=== PATIENT | female | born 1935 | race Caucasian/White ===

== ENCOUNTER 2020-12-03 20:20 | Inpatient (IN) | payer MEDICARE ==
[~2020-12-03] VITALS: Ht 157.5 cm; Wt 63.6 kg
[2020-12-03] MEDS ORDERED: AMLO10 PO (21:12)
[2020-12-03] MEDS ORDERED: ACET500 PO (21:12)
[2020-12-03] MEDS ORDERED: ATEN25 PO (21:12)
[2020-12-03] MEDS ORDERED: DONE5 PO (21:13)
[2020-12-03] MEDS ORDERED: LANOXIN125 MCG PO (21:13)
[2020-12-03] MEDS ORDERED: FENO160 PO (21:13)
[2020-12-03] MEDS ORDERED: ZESTRIL40 M1 PO (21:14)
[2020-12-03] MEDS ORDERED: IBUP400 PO (21:14)
[2020-12-03] MEDS ORDERED: Lysine500 MG PO (21:15)
[2020-12-03] MEDS ORDERED: METF500 PO (21:15)
[2020-12-03] MEDS ORDERED: CODACE30 PO (21:16)
[2020-12-03] MEDS ORDERED: THERA-D2000 UNIT PO (21:17)
[2020-12-03 22:31] LABS: BASOPHILS ABSOLUTE AUTO 0.02 K/mm3 (0.00-0.23); BASOPHILS PERCENT AUTO 0 % (0-2); EOSINOPHILS PERCENT AUTO 0 % (0-6); Hematocrit 43.2 % (33.0-51.0); Hemoglobin 13.5 g/dL (11.5-16.0); IMMATURE GRAN ABSOLUTE AUTO 0.03 K/mm3 (0.00-0.10); IMMATURE GRAN PERCENT AUTO 0 % (0-1); LYMPHOCYTES ABSOLUTE AUTO 0.35 K/mm3 (0.84-5.20); LYMPHOCYTES PERCENT AUTO 4 % (21-46); MONOCYTES PERCENT AUTO 3 % (4-13); Mean Corpuscular HGB 27.7 pg (26.0-34.0); Mean Corpuscular HGB Conc 31.3 g/dL (31.5-36.5); Mean Corpuscular Volume 89 fL (80-100); Mean Platelet Volume 8.5 fL (9.1-12.4); NEUTROPHILS ABSOLUTE AUTO 8.56 K/mm3 (1.96-9.15); NEUTROPHILS PERCENT AUTO 93 % (41-73); Platelet Count 612 K/mm3 (150-400); RDW Coefficient Variation 12.9 % (11.7-14.2); RDW Standard Deviation 42.2 fL (35.1-46.3); Red Blood Cell Count 4.87 M/mm3 (3.80-5.20); White Blood Cell Count 9.26 K/mm3 (4.00-11.30)
[2020-12-03 22:50] LABS: Alanine Aminotransfer (ALT/SGP 9 U/L (12-78); Albumin, Blood 3.2 g/dL (3.4-5.0); Albumin/Globulin Ratio 0.8 (0.8-1.8); Alk Phos 68 U/L (50-136); Anion Gap 14 mmol/L (6-16); Aspartate Aminotrans (AST/SGOT 15 U/L (12-37); Bilirubin, Total 0.5 mg/dL (0.1-1.0); Blood Urea Nitrogen 19 mg/dL (8-24); Bun/Creatinine Ratio 29.1 (12.0-20.0); CO2, Blood 22 mmol/L (21-32); Calcium, Blood 8.9 mg/dL (8.5-10.1); Chloride, Blood 103 mmol/L (98-108); Creatinine, Blood 0.65 mg/dL (0.40-1.00); Globulin, Blood 3.9 g/dL (2.2-4.0); Glomerular Filtration Rate >60 (60-); Glucose, Blood 75 mg/dL (70-99); Potassium, Blood 4.4 mmol/L (3.5-5.5); Sodium, Blood 139 mmol/L (136-145); Total Protein, Blood 7.1 g/dL (6.4-8.2)
--- NOTE | 2020-12-04 00:29 | NUR ---
12/04/20 0029 Ashley Khan PT ON SCHEDULED UNASYN AND RECIEVED PRIOR TO ARRIVAL TO OR.
--- NOTE | 2020-12-04 01:27 | NUR ---
RECOVERY PT ARRIVED FROM OR AT [address] STODDARD AND SENIOR ASSET MANAGERHUMBERTO WAGNER. PT OPENS EYES TO VERBAL RESPONSE. FOLLOWING INSTRUCTIONS. BP HYPOTENSIVE. LR BOLUS INFUSING PER DR STODDARD. LUNGS WITH WHEEZING BEFORE C&DB THAN DECREASED. PT ON 9 LITER O2 VIA NRB. CHANGED TO 2 LITERS VIA NC FOR SPO2 FOR 100%. HEART RATE REGULAR IN THE 70'S, PT WITH HISTORY OF AFIB. NG TO RIGHT NARE CLAMPED. BT HYPOACTIVE. MIDLINE ABD DRSG, LISET DRSG INTACT, NO DRAINAGE. MANASA TO RIGHT UPPER QUAD ABD WITH 50 ML SEROUSANGIOUS DRAINAGE OUT. IV 18G TO RIGHT AC WITH LR INFUSING, SITE CLEAR. IV 20G TO LEFT FOREARM SALINE LOCKED, SITE FLUSHED WITHOUT DIFFICULTY. PARISH CATH PATENT DRAINING YELLOW URINE. DAUGHTER TO BEDSIDE.
--- NOTE | 2020-12-04 02:20 | NUR ---
PT RECEIVED FROM ICU/POST RECOVERY. ALERT.SLIGHTLY FORGETFUL WITH HX DEMENTIA. NG PATENT OF BILE. DENIES CP OR SOB.RESP APPEAR EVEN AMD UNLABORED RECQUESTS TO NOT GET OOB WANTS TO SLEEP .REASSURED SHE CAN REST.LUNGS CLEAR BUT DECREASED. IV FLUID BOLUS COMPLETED. MIDLINE LISET D/I.MANASA COMPRESSED WTIH SEROUS FLUID.PT NGO.PT WITH COCCYX HEALING BEDSORE REPORTED PER DAUGHTER AT BEDSIDE.WOUND WITH CHAFFING DRY SKIN. MEPILEX APPLIED. SEE POSTOP VS.PULSES INTACT X4 EXT.PARISH PATENT OF CLEAR YELLOW.WILL PLACE PAS.
[2020-12-04 05:21] LABS: BASOPHILS ABSOLUTE AUTO 0.02 K/mm3 (0.00-0.23); BASOPHILS PERCENT AUTO 0 % (0-2); EOSINOPHILS PERCENT AUTO 0 % (0-6); Hematocrit 37.5 % (33.0-51.0); Hemoglobin 11.6 g/dL (11.5-16.0); IMMATURE GRAN ABSOLUTE AUTO 0.03 K/mm3 (0.00-0.10); IMMATURE GRAN PERCENT AUTO 0 % (0-1); LYMPHOCYTES ABSOLUTE AUTO 0.41 K/mm3 (0.84-5.20); LYMPHOCYTES PERCENT AUTO 4 % (21-46); MONOCYTES ABSOLUTE AUTO 0.35 K/mm3 (0.16-1.47); MONOCYTES PERCENT AUTO 3 % (4-13); Mean Corpuscular HGB 27.4 pg (26.0-34.0); Mean Corpuscular HGB Conc 30.9 g/dL (31.5-36.5); Mean Corpuscular Volume 88 fL (80-100); Mean Platelet Volume 8.2 fL (9.1-12.4); NEUTROPHILS ABSOLUTE AUTO 10.64 K/mm3 (1.96-9.15); NEUTROPHILS PERCENT AUTO 93 % (41-73); Platelet Count 487 K/mm3 (150-400); RDW Standard Deviation 42.5 fL (35.1-46.3); Red Blood Cell Count 4.24 M/mm3 (3.80-5.20); White Blood Cell Count 11.45 K/mm3 (4.00-11.30)
[2020-12-04 05:34] LABS: Anion Gap 10 mmol/L (6-16); Blood Urea Nitrogen 17 mg/dL (8-24); Bun/Creatinine Ratio 25.6 (12.0-20.0); CO2, Blood 24 mmol/L (21-32); Chloride, Blood 106 mmol/L (98-108); Creatinine, Blood 0.66 mg/dL (0.40-1.00); Glomerular Filtration Rate >60 (60-); Glucose, Blood 92 mg/dL (70-99); Potassium, Blood 4.4 mmol/L (3.5-5.5); Sodium, Blood 140 mmol/L (136-145)
--- NOTE | 2020-12-04 11:11 | NUR ---
PT DAUGHTER ALIX GAVE PERMISSION FOR PHOTOGRAPHY OF HEALING COCCYX WOUND THAT WAS PRESENT ON ADMISSION. PT UNABLE TO ANSWER QUESTION WHEN ASKED R/T CONFUSION AT THIS TIME.
--- NOTE | 2020-12-04 15:58 | NUR ---
SHIFT SUMMARY POD 0 EX LAP WITH GRAM PATCH REPAIR PT AA0X1/2 ORIENTATION LEVEL INCREASES WHEN DAUGHTER CAME TO VISIT. PT REPORTS DISCOMFORT BUT NOT PAIN. MEDICATED X1 PER EMAR. PT REPOSITIONING WELL ATTEMPTING TO REPOSITION Q2. PT COOPERATIVE AND PLEASANT. DENIES PASSING GAS TODAY. SOME DIFFICULTY UNDERSTANDING QUESTION TO ANSWER. MANASA DRAIN SANGUINOUS PICCO COMPRESSED CDI. PARISH PATENT AND DRAINING.
--- NOTE | 2020-12-05 02:40 | NUR ---
PT CONTINUE TO HAVE HARD TIME SWALLOWING AFTER TAKING ICE CHIPS. ENC COUGHING, DEEP BREATHING EXERCISE AND REINFORCE USE OF I/S. WILL CONTINUE TO REPOSITION PATIENT Q2.
[2020-12-05 04:11] LABS: BASOPHILS ABSOLUTE AUTO 0.02 K/mm3 (0.00-0.23); BASOPHILS PERCENT AUTO 0 % (0-2); EOSINOPHILS PERCENT AUTO 0 % (0-6); Hematocrit 31.1 % (33.0-51.0); Hemoglobin 9.8 g/dL (11.5-16.0); IMMATURE GRAN ABSOLUTE AUTO 0.07 K/mm3 (0.00-0.10); IMMATURE GRAN PERCENT AUTO 1 % (0-1); LYMPHOCYTES ABSOLUTE AUTO 0.95 K/mm3 (0.84-5.20); LYMPHOCYTES PERCENT AUTO 6 % (21-46); MONOCYTES ABSOLUTE AUTO 0.99 K/mm3 (0.16-1.47); MONOCYTES PERCENT AUTO 6 % (4-13); Mean Corpuscular HGB 27.9 pg (26.0-34.0); Mean Corpuscular HGB Conc 31.5 g/dL (31.5-36.5); Mean Corpuscular Volume 89 fL (80-100); NEUTROPHILS ABSOLUTE AUTO 13.32 K/mm3 (1.96-9.15); NEUTROPHILS PERCENT AUTO 87 % (41-73); Platelet Count 482 K/mm3 (150-400); RDW Coefficient Variation 13.3 % (11.7-14.2); Red Blood Cell Count 3.51 M/mm3 (3.80-5.20); White Blood Cell Count 15.35 K/mm3 (4.00-11.30)
--- NOTE | 2020-12-05 04:25 | NUR ---
SHIFT SUMMARY POD1 EXP LAP WITH GRAM PATCH PT ALERT AND ORIENTED X1. PT DID NOT EXPRESS ANY DISCOMFORT. UNABLE TO VERBALIZE HOW SHE FEELS. HX DEMENTIA. UNABLE TO ASSESS IF SHE HAS PASS ANY GAS. REPOSITIONED Q2 AT NIGHT. C/O OF DRY MOUTH, ICE CHIPS AND MOUTH SWAB GIVEN. PT STILL HAS A HARD TIME SWALLOWING, REORIENT PT AND VERBAL CUES GIVEN TO INSTRUCT AND GUIDE PT. MANASA DRAINING W/ SANGUINOUS. PAIRSH INTACT W/ AN OUTPUT OF 200ML. ABD LISET MIDLINE COMPRESSED CDI. TELE AT SR AT 60'S. PT COMFORTABLE IN BED, SLEEPING AT THIS TIME. CALL LIGHT W/IN REACH.
[2020-12-05 04:30] LABS: Albumin, Blood 2.1 g/dL (3.4-5.0); Anion Gap 10 mmol/L (6-16); Blood Urea Nitrogen 26 mg/dL (8-24); Bun/Creatinine Ratio 37.5 (12.0-20.0); CO2, Blood 21 mmol/L (21-32); Calcium, Blood 8.1 mg/dL (8.5-10.1); Chloride, Blood 110 mmol/L (98-108); Creatinine, Blood 0.69 mg/dL (0.40-1.00); Glomerular Filtration Rate >60 (60-); Glucose, Blood 100 mg/dL (70-99); Phosphorus, Blood 2.7 mg/dL (2.5-4.9); Potassium, Blood 4.3 mmol/L (3.5-5.5); Sodium, Blood 141 mmol/L (136-145)
--- NOTE | 2020-12-05 04:46 | NUR ---
SHIFT SUMMARY PT AOX4, INDEPENDENT IN ROOM. NO ACUTE CHANGES TONIGHT. DR. KOWALSKI CAME IN LAST NIGHT TO SPEAK PT AND L HAND DRESSING CHANGED. PLAN FOR SURGERY TODAY. PT HAS BEEN NPO AFTER MIDNIGHT. PAIN IS WELL CONTROLLED, MANAGED WITH 10MG ELMER Q4. HEPARIN STILL INFUSING. SENSATION INTACT AND INTERMITENT NUMBNESS ON R KNUCKLE HAS NOT CHANGED. PT SLEPT GOOD AFTER MIDNIGHT. CALL LIGHT W/IN REACH.
--- NOTE | 2020-12-05 13:19 | NUR ---
DISCUSSED SPEECH THERAPY SWALLOW EVAL WITH DR ESCOBAR. DR ESCOBAR DOES NOT WANT A SWALLOW EVAL DONE AT THIS TIME. PT HAS AN NG TUBE AT THIS TIME AND WILL RE-EVALUATE NEED FOR SWALLOW EVAL WHEN REMOVED.
[2020-12-05] MEDS ORDERED: Ocuvite Preser1 EACH PO (17:11)
[2020-12-05] MEDS ORDERED: ABAT250V (17:12)
--- NOTE | 2020-12-05 19:24 | NUR ---
SHIFT SUMMARY PT A&OX4, VSS/2LNC, BEDREST, POD1 EXP LAP GRAM PATCH WITH LISET D/I AND MANASA WITH SS OUT. TELE NSR @ 60S BPM, PARISH PATENT & DRAINING YELLOW URINE, STAT LOCK ON, OFF FLOOR. HOB ELEV FOR INTAKE OF ICE CHIPS. PAIN MANAGED WITH 2.5 MG MORPHINE X1;DENIED PAIN T/O SHIFT. REPOSITIONED Q2. REPORT PROVIDED TO DAWOOD PAUL.
[2020-12-06 04:21] LABS: BASOPHILS ABSOLUTE AUTO 0.02 K/mm3 (0.00-0.23); BASOPHILS PERCENT AUTO 0 % (0-2); EOSINOPHILS ABSOLUTE AUTO 0.06 K/mm3 (0.00-0.68); EOSINOPHILS PERCENT AUTO 1 % (0-6); Hematocrit 30.2 % (33.0-51.0); Hemoglobin 9.4 g/dL (11.5-16.0); IMMATURE GRAN ABSOLUTE AUTO 0.06 K/mm3 (0.00-0.10); IMMATURE GRAN PERCENT AUTO 1 % (0-1); LYMPHOCYTES ABSOLUTE AUTO 1.05 K/mm3 (0.84-5.20); LYMPHOCYTES PERCENT AUTO 9 % (21-46); MONOCYTES ABSOLUTE AUTO 0.76 K/mm3 (0.16-1.47); MONOCYTES PERCENT AUTO 6 % (4-13); Mean Corpuscular HGB 27.9 pg (26.0-34.0); Mean Corpuscular HGB Conc 31.1 g/dL (31.5-36.5); Mean Corpuscular Volume 90 fL (80-100); Mean Platelet Volume 8.1 fL (9.1-12.4); NEUTROPHILS ABSOLUTE AUTO 10.14 K/mm3 (1.96-9.15); NEUTROPHILS PERCENT AUTO 84 % (41-73); Platelet Count 445 K/mm3 (150-400); RDW Coefficient Variation 13.2 % (11.7-14.2); RDW Standard Deviation 43.8 fL (35.1-46.3); Red Blood Cell Count 3.37 M/mm3 (3.80-5.20); White Blood Cell Count 12.09 K/mm3 (4.00-11.30)
--- NOTE | 2020-12-06 04:25 | NUR ---
SHIFT SUMMARY ADMITTED FOR PERFORATED ULCER. GRAM PATCH PROCEDURE PERFORMED. FULL CODE. MANASA DRAIN IN PLACE. NG TUBE IN PLACE, PT IS NPO EXCEPT ICE CUBES. LISET DRESSING IN PLACE MIDLINE ABDOMEN. PT IS [place]. TELEMETRY: NSR @ 67 BPM. МАРИНА IS PATENT. PLAN IS FOR PT TO WORK WITH PT/OT TODAY. THE PATCH WILL BE TESTED ON POD3
[2020-12-06 04:40] LABS: Anion Gap 8 mmol/L (6-16); Blood Urea Nitrogen 18 mg/dL (8-24); Bun/Creatinine Ratio 38.1 (12.0-20.0); CO2, Blood 25 mmol/L (21-32); Calcium, Blood 8.4 mg/dL (8.5-10.1); Chloride, Blood 112 mmol/L (98-108); Creatinine, Blood 0.47 mg/dL (0.40-1.00); Glomerular Filtration Rate >60 (60-); Glucose, Blood 85 mg/dL (70-99); Phosphorus, Blood 1.4 mg/dL (2.5-4.9); Potassium, Blood 3.8 mmol/L (3.5-5.5); Sodium, Blood 145 mmol/L (136-145)
--- NOTE | 2020-12-06 10:04 | NUR ---
PERMISSION TO CARE THIS OPERATIONAL RISK ANALYST GOT PERMISSION FROM DONNA STEELE ON 12/06/20, TO PROVIDE CARE.
--- NOTE | 2020-12-06 13:08 | NUR ---
Patient is lying in bed and alert. Patient immediately tells me that she has no idea why she is in the hospital and that is frustrated by all the tests they are putting her through. Once patient calms down a bit she is quite pleasant and cognitively sharp. 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 She talks about her 's to Parkinson's and her 4 daughters. She states that they take great care of her. She also speaks at length about her spiritual journey and her service in the [employer]af[employer] for most of her life. I reinforce helpful attitudes and practices and provide therapeutic listening, a calming presence and prayer. Patient responds well and shows signs of increase peace and an elevated mood. I will continue to remain available to patient and family.
--- NOTE | 2020-12-06 18:27 | NUR ---
SHIFT SUMMARY PT IS ALERT AND ORIENTED 2-3. AFTER PRN PAIN MEDS PT'S CONFUSION INCREASES FOR A FEW HOURS AND BEGINS TO CLEAR. NG REMAINS IN PLACE TO LIS WITH 450ML OF BILE COLORED OUTPUT THIS SHIFT. PT REPORTS MOST OF HER PAIN IS BACK OF HER THROAT, DENIES ABDOMINAL PAIN AT REST AND HAS A FAIR AMOUNT OF PAIN WITH MOVEMENT AND ACTIVITY. PARISH IN PLACE DRAINING TO GRAVITY WITH ADEQUATE OUTPUT. MANASA DRAINING SEROUS FLUID. VITALS HAVE BEEN STABLE. TELEMETERY SHOWS PT TO BE IN NSR W/ PAC'S.
--- NOTE | 2020-12-07 02:46 | NUR ---
SHIFT SUMMARY POD3 EX LAP W/ ERICK PATCH, ALERT AND ORIENTED TO PERSON/FAMILY/PLACE, INTERMITTENT CONFUSION BUT EASY TO REORIENT, VSS, TOLERATING ICE CHIPS, NPO OTHERWISE, NG TUBE IN PLACE, PARISH IN PLACE AND DRAINING, UNABLE TO ANSWER ABOUT MOST RECENT BM OR PAIN. CALL LIGHT IN REACH, WILL CONTINUE TO MONIOTR AND REPORT GENEVA WONG RN.
[2020-12-07 04:27] LABS: BASOPHILS ABSOLUTE AUTO 0.04 K/mm3 (0.00-0.23); BASOPHILS PERCENT AUTO 0 % (0-2); EOSINOPHILS ABSOLUTE AUTO 0.12 K/mm3 (0.00-0.68); EOSINOPHILS PERCENT AUTO 1 % (0-6); Hematocrit 28.9 % (33.0-51.0); IMMATURE GRAN ABSOLUTE AUTO 0.05 K/mm3 (0.00-0.10); IMMATURE GRAN PERCENT AUTO 1 % (0-1); LYMPHOCYTES PERCENT AUTO 12 % (21-46); MONOCYTES ABSOLUTE AUTO 0.76 K/mm3 (0.16-1.47); MONOCYTES PERCENT AUTO 8 % (4-13); Mean Corpuscular HGB 27.4 pg (26.0-34.0); Mean Corpuscular HGB Conc 31.1 g/dL (31.5-36.5); Mean Corpuscular Volume 88 fL (80-100); Mean Platelet Volume 8.2 fL (9.1-12.4); NEUTROPHILS ABSOLUTE AUTO 7.69 K/mm3 (1.96-9.15); NEUTROPHILS PERCENT AUTO 78 % (41-73); Platelet Count 405 K/mm3 (150-400); RDW Coefficient Variation 13.1 % (11.7-14.2); RDW Standard Deviation 42.5 fL (35.1-46.3); Red Blood Cell Count 3.29 M/mm3 (3.80-5.20); White Blood Cell Count 9.86 K/mm3 (4.00-11.30)
[2020-12-07 04:49] LABS: Albumin, Blood 1.9 g/dL (3.4-5.0); Anion Gap 3 mmol/L (6-16); Blood Urea Nitrogen 15 mg/dL (8-24); Bun/Creatinine Ratio 40.5 (12.0-20.0); CO2, Blood 31 mmol/L (21-32); Calcium, Blood 8.1 mg/dL (8.5-10.1); Chloride, Blood 108 mmol/L (98-108); Creatinine, Blood 0.37 mg/dL (0.40-1.00); Glomerular Filtration Rate >60 (60-); Glucose, Blood 117 mg/dL (70-99); Phosphorus, Blood 1.6 mg/dL (2.5-4.9); Potassium, Blood 3.2 mmol/L (3.5-5.5); Sodium, Blood 142 mmol/L (136-145)
--- NOTE | 2020-12-07 14:37 | NUR ---
PT'S FAMILY IS VISITING AT THIS TIME. DR. ESCOBAR NOTIFIED THAT THEY HAVE QUESTIONS AND ARE PRESENT IN THE ROOM. WILL CONTINUE TO MONITOR.
--- NOTE | 2020-12-07 15:29 | NUR ---
Jerrica Tillman calls on [employer] upon patient request asking for a spiritual care visit. Patient is finishing with PT and is tired but is glad for this residential mortgage underwriter to meet her daughters, Mariella and Ludivina. Patient wants me to see and listen to clip from her latter day oriental orthodox service and then to talk with her family about my connections to all the places they live, attend school and latter day because of all the common ground. Patient is encouraged by discussions of places and people that hold special memories. I provide companionship and prayer. Patient and family respond well and show signs of elevated moods. I will continue to remain available to patient and family.
--- NOTE | 2020-12-07 16:51 | NUR ---
DR. ESCOBAR ROUNDED AT APPROXIMATELY 1630. NG TUBE WAS REMOVED BY DR. ESCOBAR, PT TOLERATED WELL. PT TOLERATING SIPS AND CHIPS AT THIS TIME.
--- NOTE | 2020-12-07 17:59 | NUR ---
SHIFT SUMMARY PT IS POD# 3 FROM A GRAM PATCH TO REPAIR PERF'D ULCER. PT HAS HAD DIFFICULTY EXPRESSING PAIN, MORPHINE GIVEN TO MAKE MOVEMENT EASIER PT APPEARED PAINFUL WITH MOVEMENT. NG TUBE WAS REMOVED BY DR. ESCOBAR TODAY. PT IS TOLERATING SIPS AND CHIPS. PT SAT AT THE EDGE OF THE BED WITH THERAPY, ALTHOUGH SHE WAS NOT EXCITED TO PARTICIPATE. PT HAS ANXIETY AND NEEDS ENCOURAGEMENT. VSS. WILL MONITOR UNTIL REPORT TO ONCOMING RN.
[2020-12-08 04:50] LABS: Hematocrit 30.8 % (33.0-51.0); Hemoglobin 9.8 g/dL (11.5-16.0)
--- NOTE | 2020-12-08 04:59 | NUR ---
SHIFT SUMMARY: PT POD#4 FOR ERICK PATCH. LISET WOUND VAC C/D/I AND COMPRESSED. MANASA DRAINING MODERATE AMOUNT OF SEROUS FLUID. 90CC EMPTIED. ACTIVE BT X4. PT IS UNAWARE WHETHER SHE IS PASSING FLATUS OR NOT. CONFUSED THIS SHIFT. REPEATING SELF FREQUENTLY. NONSENSICAL AT TIMES AND HAVING A DIFFICULT TIME FINISHING SENTENCES. PT HAS REMAINED CALM AND COOPERATIVE WITH CARE. CLINIMIX INFUSING PER EMAR. PT MEDICATED WITH 2MG MORPHINE ONCE. PT DENIES ABD PAIN BUT IS COMPLAINING ABOUT LEFT SHOULDER AND RIGHT KNEE PAIN. R KNEE APPEARS SWOLLEN. FAMILY REPORTS CHRONIC ISSUES WITH BILATERAL KNEES. PT UNMOTIVATED TO REPOSITION OR PERFORM ROM EXERCISES. PT CRIES OUT IN PAIN DURING ANY SORT OF MOVEMENT. PT NOT EAGER FOR ANOTHER SESSION FOR PHYSICAL THERAPY. PT REQUIRING FREQ EDUCATION AND ENCOURAGEMENT.
[2020-12-08 05:19] LABS: Anion Gap 7 mmol/L (6-16); Blood Urea Nitrogen 15 mg/dL (8-24); Bun/Creatinine Ratio 42.7 (12.0-20.0); CO2, Blood 27 mmol/L (21-32); Calcium, Blood 8.1 mg/dL (8.5-10.1); Chloride, Blood 101 mmol/L (98-108); Creatinine, Blood 0.35 mg/dL (0.40-1.00); Glomerular Filtration Rate >60 (60-); Glucose, Blood 133 mg/dL (70-99); Phosphorus, Blood 2.5 mg/dL (2.5-4.9); Potassium, Blood 3.4 mmol/L (3.5-5.5); Sodium, Blood 135 mmol/L (136-145)
--- NOTE | 2020-12-08 11:04 | NUR ---
PT HAD A BM THIS MORNING, UNABLE TO COLLECT SAMPLE IT WAS ABSORBED BY ATTENDS AND AT LEAST 5ML OF STOOL NEEDED.
--- NOTE | 2020-12-08 18:00 | NUR ---
Initial palliative care consult: Met with Alisa and her dtr Mariella this evening. Alisa has a history of a-fib (not on anti coagulation), HTN, DM, L knee and L hip replacements and a LLE DVT in the 1940s. 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 She is awake and alert but tired during our conversation. She reports discomfort to her right knee with movement. Her right knee is swollen and warm to the touch. No c/o of any abd pain at this time. Alisa tells this ticket writer that she just moved from [place], [place] to come live with her dtr, Mariella, in [place], [place]. She tells me that her 4 children decided it was time for her to move and she reports that she is ok with this recent change in her life. She denies being depressed about her move. She flew into the [facility] from [place] and was taken directly to the hospital because of abdominal pain. She was transferred to [facility] for surgery for a perforated ulcer which was repaired by Dr. Brunner on 12/04/20. She has had a slow recovery thus far due to pain and poor motivation to get OOB and work with therapy. Several staff members have reported that Alisa has referenced being ready to go to [facility]. Mariella reports her mother has an AD from the state of [place] (she has a copy of it with her.) We reviewed the AD and discussed a POLST form. Mariella reports her mom doesn't have a POLST form but is interested in filling one out while she is here. Mariella and her sister Adalgisa are the health care representatives for Alisa. This is listed in her AD from [place]. Discussed the options on the POLST form and Alisa is very clear that she would want to be a DNR. Alisa requested that Mariella sign her POLST form for her. Current plan per Mariella is that they are working [place]. The hope is that with some pain management,therapy and time that Alisa will get stronger to be able to go and live with Mariella. Mariella states that if Alisa isn't able to participate in therapy and it is creating more pain and anxiety, discomfort that they will revisit the goals of care and look at options for keeping Alisa comfortable with the right equipment in Mariella's home. POLST form completed. Spoke with Dr. Roblero and placed new order for DNR in the EMR per her request. Nursing updated. Plan is to keep Alisa through the weekend, continue with pain management strategies and therapy and potentially be able [place]. PC will continue to follow for symptom management and assistance with advanced care planning as needed. POLST form to be signed by Dr. Roblero and then it will be processed for medical records and the [place] POL[place] Registry.
--- NOTE | 2020-12-08 18:54 | NUR ---
R KNEE WRAPPED WITH TERRENCE WRAP FOR COMFORT PER DR. KELLY.
--- NOTE | 2020-12-08 18:55 | NUR ---
DNR BAND PLACED AND ORDER VERIFIED WITH ADILIA DORSEY RN.
--- NOTE | 2020-12-08 18:58 | NUR ---
SHIFT SUMMARY PT IS POD#4 FROM ERICK PATCH ULCER REPAIR. PT HAS HAD MINIMAL ABD PAIN BUT COMPLAINS OF PAIN TO HER R KNEE. PT'S RIGHT KNEE HAS BEEN SWOLLEN, XRAY SHOWED ARTHRITIS PER DR. KELLY. TERRENCE WRAP WAS APPLIED FOR COMFORT. ICE DID NOT APPEAR TO RELIEVE PAIN. PT WORKED WITH THERAPY AND WAS A 2 PERSON MAX ASSIST TO THE BEDSIDE COMMODE. PARISH CATHETER REMOVED THIS SHIFT, PT HAS VOIDED X2 BUT AND RETAINS SOME URINE. BLADDER SCANS HAVE SHOWN >200ML. PT HAS BEEN UNINTERESTED IN FOOD OR FLUIDS TODAY, CONTINUING CLINIMIX AT THIS TIME. PT HAS HAD MULTIPLE BOWEL MOVEMENTS AND HAS ACTIVE BOWEL SOUNDS X4 QUADRANTS. FAMILY WAS PRESENT FOR SUPPORT TODAY. PT'S LEONER AND CLAUDIA THOMSON TALKED WITH THERAPY, DISCHARGE PLANNING AND DR. KELLY REGARDING PT'S STATUS AND PLAN OF CARE. VSS. REPORT GIVEN TO DAWOOD PAUL.
--- NOTE | 2020-12-09 05:19 | NUR ---
SHIFT SUMMARY PT HAS BEEN SLEEPING MOST OF THE SHIFT, AWAKENING TO VERBAL STIMULI. ORIENTED X2. PAIN MANAGED WITH PO PAIN MED PER ORDERS. PO INTAKE ENC, HOWEVER PT HAS NOT BEEN INTERESTED IN MUCH PO INTAKE THIS SHIFT. PT IS VOIDING USING BEDPAN. ATTENS ALSO IN PLACE. CLINIMIX INFUSING OVERNIGHT. PT RESTING AT THIS TIME, CALL LIGHT IN REACH AND BED ALARM ON.
[2020-12-09 05:49] LABS: BASOPHILS ABSOLUTE AUTO 0.03 K/mm3 (0.00-0.23); BASOPHILS PERCENT AUTO 0 % (0-2); EOSINOPHILS ABSOLUTE AUTO 0.23 K/mm3 (0.00-0.68); EOSINOPHILS PERCENT AUTO 2 % (0-6); Hematocrit 29.7 % (33.0-51.0); Hemoglobin 9.5 g/dL (11.5-16.0); IMMATURE GRAN ABSOLUTE AUTO 0.08 K/mm3 (0.00-0.10); IMMATURE GRAN PERCENT AUTO 1 % (0-1); LYMPHOCYTES ABSOLUTE AUTO 1.28 K/mm3 (0.84-5.20); LYMPHOCYTES PERCENT AUTO 13 % (21-46); MONOCYTES ABSOLUTE AUTO 1.07 K/mm3 (0.16-1.47); MONOCYTES PERCENT AUTO 11 % (4-13); Mean Corpuscular HGB 27.4 pg (26.0-34.0); Mean Corpuscular Volume 86 fL (80-100); Mean Platelet Volume 8.3 fL (9.1-12.4); NEUTROPHILS ABSOLUTE AUTO 6.86 K/mm3 (1.96-9.15); NEUTROPHILS PERCENT AUTO 72 % (41-73); Platelet Count 379 K/mm3 (150-400); RDW Standard Deviation 40.2 fL (35.1-46.3); Red Blood Cell Count 3.47 M/mm3 (3.80-5.20); White Blood Cell Count 9.55 K/mm3 (4.00-11.30)
[2020-12-09 06:02] LABS: Albumin, Blood 1.8 g/dL (3.4-5.0); Anion Gap 7 mmol/L (6-16); Blood Urea Nitrogen 16 mg/dL (8-24); Bun/Creatinine Ratio 42.2 (12.0-20.0); CO2, Blood 27 mmol/L (21-32); Chloride, Blood 101 mmol/L (98-108); Creatinine, Blood 0.38 mg/dL (0.40-1.00); Glomerular Filtration Rate >60 (60-); Glucose, Blood 121 mg/dL (70-99); Phosphorus, Blood 2.7 mg/dL (2.5-4.9); Potassium, Blood 3.7 mmol/L (3.5-5.5); Sodium, Blood 135 mmol/L (136-145)
--- NOTE | 2020-12-09 06:41 | NUR ---
PT NOTED TO HAVE NOT VOIDED MUCH OVER THE SHIFT; PLACED ON BEDPAN WITH ONLY 50CC VOID. BLADDER SCAN >500ML'S. STRAIGHT CATH COMPLETED WITH 600ML URINE OUT. TOLERATED WELL.
--- NOTE | 2020-12-09 19:11 | NUR ---
SHIFT SUMMARY PT HAS SHOWN LITTLE IMPROVEMENT T/O SHIFT. DIET ADVANCED TO FULL LIQUIDS, TOOK IN APROX 2% EACH MEAL-DAUGHTER AT BEDSIDE ENCOURAGING PO T/O SHIFT. PT WORKED WITH THERAPY AND WAS UP TO CHAIR. INCONTINENT OF URINE AND STOOL.
--- NOTE | 2020-12-10 04:50 | NUR ---
SHIFT SUMMARY PT RESTED WELL THIS AM. CONFUSED/COOPERATIVE WITH CARE. ABD INCISION WITH LISET C/D/I. MNAASA SECURE WITH 70cc CLEAR/YELLOW OUT. COCCYX WITH MEPILEX, CHANGED YESTARDAY EVENING. X1 BM YESTARDAY. TOLERATING SIPS FLUIDS, CONTINUE TO ENCOURAGE. CLINIMIX PER ORDERS. TURN Q2H. PT CURRENTLY RESTING WITH BED ALARM ON FOR SAFETY + CALL LIGHT IN REACH.
--- NOTE | 2020-12-10 18:32 | NUR ---
SHIFT SUMMARY PT HAS DONE WELL T/O SHIFT. SLOW PROGRESS WITH INCREASING PO INTAKE. PICCO DRESSING C/D/I-FOAM COMPRESSED. MANASA DRAIN PARENTS, DRAINING WITH CLEAR YELLOW DRAINAGE. PT VOIDING, INCONTINENT AT TIMES. PLAN TO ENCOURAGE PO INTAKE AND WORK WITH PT.
--- NOTE | 2020-12-11 06:24 | NUR ---
SHIFT SUMMARY POD#7. CONFUSED/COOPERATIVE WITH CARE. ABD INCISION WITH LISET C/D/I. MANASA SECURE WITH SMALL AMOUNT CLEAR/YELLOW OUT. DISCOMFORT CONTROLLED WITH X1 PAIN PILL. NO NAUSEA/EMESIS. NEW IV TO CARYN THIS SHIFT, CLINIMIX PER ORDERS. PT TAKING SIPS OF LIQUIDS T/O NIGHT, CONTINUE TO ENCOURAGE. TURN Q2H. INCONTINENT IN ATTENDS. HEELS FLOATED. PT CALLS OUT FOR ASSISTANCE. BED ALARM ON FOR SAFETY + CALL LIGHT WITHIN REACH. PT CURRENTLY RESTING IN BED,
--- NOTE | 2020-12-11 11:03 | NUR ---
Alisa is resting quietly in bed this morning. Her dtr, Mariella, is at the bedside. Alisa has no complaints at this time. She is looking forward to getting stronger to be able to go home to live with her dtr in [place]. Mariella reports Alisa's mood over the weekend has improved. She is no longer saying that she wants to go to [facility] at this time. Mariella reports CM RN is working to get Alisa a swimg bed nearer to her home in [place]. Alisa is working on trying to improve her PO intake, she still has clinimix running at this time. POLST form signed by Dr. Roblero. POLST copied and copy sent to Medical records department at [facility] and faxed to the [place] Registry. Original POLST and Alisa's AD are both in the front of her chart. No requests at this time. PC will continue to follow for symptom management as needed.
[2020-12-11 12:23] LABS: Hematocrit 31.3 % (33.0-51.0); Hemoglobin 10.2 g/dL (11.5-16.0); Mean Corpuscular HGB 28.1 pg (26.0-34.0); Mean Corpuscular HGB Conc 32.6 g/dL (31.5-36.5); Mean Corpuscular Volume 86 fL (80-100); Mean Platelet Volume 8.4 fL (9.1-12.4); Platelet Count 516 K/mm3 (150-400); RDW Standard Deviation 40.7 fL (35.1-46.3); Red Blood Cell Count 3.63 M/mm3 (3.80-5.20); White Blood Cell Count 11.82 K/mm3 (4.00-11.30)
[2020-12-11 12:35] LABS: Magnesium, Blood 1.8 mg/dL (1.6-2.4)
[2020-12-11 12:36] LABS: Anion Gap 7 mmol/L (6-16); Blood Urea Nitrogen 17 mg/dL (8-24); Bun/Creatinine Ratio 39.9 (12.0-20.0); CO2, Blood 26 mmol/L (21-32); Calcium, Blood 8.3 mg/dL (8.5-10.1); Chloride, Blood 98 mmol/L (98-108); Creatinine, Blood 0.43 mg/dL (0.40-1.00); Glomerular Filtration Rate >60 (60-); Glucose, Blood 110 mg/dL (70-99); Potassium, Blood 4.3 mmol/L (3.5-5.5); Sodium, Blood 131 mmol/L (136-145)
--- NOTE | 2020-12-11 18:11 | NUR ---
SHIFT SUMMARY PT HAS BEEN PLEASANT & COOPERATIVE T/O SHIFT. WAS AGREEABLE TO GET UP TO A CHAIR x 1 WITH MUCH ENCOURAGEMENT; WAS ABLE TO TOLERATE UP IN CHAIR FOR 1.5 HOURS. ABD DID BECOME NOTICEABLY MORE DISTENDED AFTER LUNCH SO ONLY SIPS OF WATER TO ALLOW DIGESTION. LISET DRSG REMOVED PER DR OG.
[2020-12-12 04:53] LABS: BASOPHILS ABSOLUTE AUTO 0.04 K/mm3 (0.00-0.23); BASOPHILS PERCENT AUTO 0 % (0-2); EOSINOPHILS ABSOLUTE AUTO 0.21 K/mm3 (0.00-0.68); EOSINOPHILS PERCENT AUTO 2 % (0-6); Hematocrit 29.8 % (33.0-51.0); Hemoglobin 9.6 g/dL (11.5-16.0); IMMATURE GRAN ABSOLUTE AUTO 0.09 K/mm3 (0.00-0.10); IMMATURE GRAN PERCENT AUTO 1 % (0-1); LYMPHOCYTES ABSOLUTE AUTO 1.35 K/mm3 (0.84-5.20); LYMPHOCYTES PERCENT AUTO 11 % (21-46); MONOCYTES ABSOLUTE AUTO 1.09 K/mm3 (0.16-1.47); MONOCYTES PERCENT AUTO 9 % (4-13); Mean Corpuscular HGB 27.8 pg (26.0-34.0); Mean Corpuscular HGB Conc 32.2 g/dL (31.5-36.5); Mean Corpuscular Volume 86 fL (80-100); Mean Platelet Volume 8.3 fL (9.1-12.4); NEUTROPHILS ABSOLUTE AUTO 9.14 K/mm3 (1.96-9.15); NEUTROPHILS PERCENT AUTO 77 % (41-73); Platelet Count 494 K/mm3 (150-400); Red Blood Cell Count 3.45 M/mm3 (3.80-5.20); White Blood Cell Count 11.92 K/mm3 (4.00-11.30)
[2020-12-12 05:09] LABS: Anion Gap 7 mmol/L (6-16); Blood Urea Nitrogen 16 mg/dL (8-24); Bun/Creatinine Ratio 41.5 (12.0-20.0); CO2, Blood 27 mmol/L (21-32); Calcium, Blood 8.4 mg/dL (8.5-10.1); Chloride, Blood 100 mmol/L (98-108); Creatinine, Blood 0.39 mg/dL (0.40-1.00); Glomerular Filtration Rate >60 (60-); Glucose, Blood 113 mg/dL (70-99); Potassium, Blood 4.1 mmol/L (3.5-5.5); Sodium, Blood 134 mmol/L (136-145)
--- NOTE | 2020-12-12 05:41 | NUR ---
SHIFT SUMMARY POD8 EX LAP W/ ERICK PATCH, ALERT, ORIENTED TO SELF AND FAMILY BUT REORIENTS TO PLACE AND SITUATION EASILY, TOLERATING PO SIPS, PASSING FLATUS BUT NO BM THIS SHIFT, PAIN CONTROLLED PER EMAR, REPORTS TENDERNESS AROUND INCISION/UPPER ABD, DOES NOT USE CALL LIGHT, CALLS OUT FOR HELP WHEN NEEDED, ANSWERS MOST QUESTIONS W/ "I DON'T KNOW", DOES WELL W/ THERAPEUTIC COMMUNICATION AND REASSURANCE, VOIDING WELL IN DEPENDS. CALL LIGHT IN REACH, WILL CONTINUE TO MONITOR AND REPORT TO ONCOMING DAY RN.
--- NOTE | 2020-12-12 14:48 | NUR ---
DR KELLY IN TO SEE PT PT STATED WANTED TO "STOP" AND "GO TO [facility]". DR KELLY SPEAKING TO DAUGHTER.
--- NOTE | 2020-12-12 15:02 | NUR ---
KIRSTIN, PALLIATIVE CARE RN AND DR KELLY SPEAKING DAUGHTER OF PT.
--- NOTE | 2020-12-12 15:30 | NUR ---
Pt was alone in her room when I visited initially. She looked at me at said, "I hurt all over". She is not able to pinpoint location or describe. She appears anxious and distressed when trying to ask questions to assess pain. She cannot remember if cedric is still here or has left. She doesn't know if a warm pad will be helpful and starts saying, "I don't know" repeatedly in a distressed voice. Pt calmed with soft voice and touch. Once settled, I left room to speak with pt's nurse. I found cedric and Dr meeting and joined them. Cedric was presented with different possible scenarios and options, & questions answered. I followed cedric back to room and visited with her mom again. Mom was able to verbally agree to see how things went overnight with her gut. She agreed to a warm blanket on her abdomen. Her cedric had a loving and supportive conversation with her about "going to critical access hospital". Plan is to continue plan of care as is and for Mariella to have conversations with her sisters about all that was discussed today. We agreed to meet and reeval pt/family goals in am and update on current status. Cedric is staying locally at her cousins in [place] and also mentioned that if plan was to go home on HH/hospice that may be possible in [place] instead of [place]. Mariella has been working with MARVIN Bruno on researching d/d options, insurance coverage. Pt is currently sitll on her [place] medicare coverage until Dec 25. I encouraged cedric to call current insurer and inquire if they would cover HH or hospice in [place] since this admission was an emergency. Cedric expressed appreciation of Drs and my time and our conversation. I encouraged self care, rest and taking each day/development at a time. She stated she is getting better rest by staying with her cousin in [place]. Updated pt's RN, Akila, after my visit and we discussed use of ultram as ordered prn for increasing pain, pt describes as "ALL OVER".
--- NOTE | 2020-12-12 16:33 | NUR ---
DR ESCOBAR IN TO SEE PT.
--- NOTE | 2020-12-12 17:06 | NUR ---
SUMMARY PT'S LOWER ABD DISTENDED BUT ACTIVE BT PRESENT. ADMINISTERED SUPPOSITORY PER ORDERS THIS AFTERNOON. MEDICATED PER ORDERS FOR PAIN W/TYLENOL THIS AFTERNOON. WARM BLANKET TO ABDOMEN. PT MADE COMMENT THAT SHE WAS "DONE" AND READY "TO BE WITH TERRA" TO DR KELLY. DR KELLY AND PALLIATIVE CARE SPOKE WITH DAUGHTER ABOUT THIS. DR ESCOBAR IN THIS AFTERNOON AND SPOKE TO DAUGHTER. PLAN TO CONTINUE CARE THROUGH NIGHT AND SEE HOW PT FEELS IN AM. DR ESCOBAR STATED PLAN TO DO ANOTHER SUPPOSITORY IN AM. PT RESTING WITH EYES CLOSED AT THIS TIME.
[2020-12-13 04:44] LABS: BASOPHILS ABSOLUTE AUTO 0.04 K/mm3 (0.00-0.23); BASOPHILS PERCENT AUTO 0 % (0-2); EOSINOPHILS ABSOLUTE AUTO 0.17 K/mm3 (0.00-0.68); EOSINOPHILS PERCENT AUTO 1 % (0-6); Hematocrit 28.8 % (33.0-51.0); IMMATURE GRAN PERCENT AUTO 1 % (0-1); LYMPHOCYTES ABSOLUTE AUTO 1.36 K/mm3 (0.84-5.20); LYMPHOCYTES PERCENT AUTO 11 % (21-46); MONOCYTES ABSOLUTE AUTO 1.07 K/mm3 (0.16-1.47); MONOCYTES PERCENT AUTO 8 % (4-13); Mean Corpuscular HGB 26.8 pg (26.0-34.0); Mean Corpuscular HGB Conc 31.3 g/dL (31.5-36.5); Mean Corpuscular Volume 86 fL (80-100); Mean Platelet Volume 8.1 fL (9.1-12.4); NEUTROPHILS ABSOLUTE AUTO 10.24 K/mm3 (1.96-9.15); NEUTROPHILS PERCENT AUTO 79 % (41-73); Platelet Count 505 K/mm3 (150-400); RDW Coefficient Variation 12.9 % (11.7-14.2); RDW Standard Deviation 40.5 fL (35.1-46.3); Red Blood Cell Count 3.36 M/mm3 (3.80-5.20); White Blood Cell Count 12.98 K/mm3 (4.00-11.30)
[2020-12-13 04:59] LABS: Anion Gap 5 mmol/L (6-16); Blood Urea Nitrogen 18 mg/dL (8-24); Bun/Creatinine Ratio 40.1 (12.0-20.0); CO2, Blood 28 mmol/L (21-32); Calcium, Blood 8.4 mg/dL (8.5-10.1); Chloride, Blood 104 mmol/L (98-108); Creatinine, Blood 0.45 mg/dL (0.40-1.00); Glomerular Filtration Rate >60 (60-); Glucose, Blood 110 mg/dL (70-99); Potassium, Blood 4.3 mmol/L (3.5-5.5); Sodium, Blood 137 mmol/L (136-145); Triglycerides 48 mg/dL (30-160)
--- NOTE | 2020-12-13 05:11 | NUR ---
SHIFT SUMMARY POD9 EX LAP W/ ERICK PATCH FOR PERF ULCER, ALERT, ORIENTED X2 (SELF, FAMILY), CONFUSED BUT REORIENTS EASILY, TOLERATING PO FLUIDS, POOR PO INTAKE BUT ENCOURAGING PT TO TAKE A FEW DRINKS WHEN WE GO INTO HER ROOM, PASSING FLATUS, BM PRIOR SHIFT, MODERATE ASSISTANCE FOR TRANSFERRING TO CHAIR PER REPORT, ABD DISTENDED BUT APPEARS TO BE IMPROVING, ANSWERS ALL QUESTIONS W/ "I DON'T KNOW" OR "I DON'T KNOW WHAT TO DO", IS ABLE TO FOLLOW DIRECTIONS, CALLS OUT FOR HELP, DOESN'T USE CALL LIGHT. CALM AND COOPERATIVE T/O SHIFT, VERY POLITE W/ ALL STAFF. ATTENDS IN PLACE, MULTIPLE INCONTINENT VOIDS. CALL LIGHT IN REACH, WILL CONTINUE TO MONITOR AND REPORT TO ONCOMING DAY RN.
--- NOTE | 2020-12-13 09:16 | NUR ---
Brief visit with pt, currently alone lying in her bed. She is distressed that her cedric is not there. "I'm lonely". Time spent rearranging her things for her and repositioning her in bed for comfort but she got more distressed, "I just don't know what I want". EMR reviewed and pt has had a bowel movement and less abd distention since my last visit yesterday afternoon. Spoke with RN and will return later when cedric arrives for supportive visit. VM left for FAX MACHINE OPERATOR with update on pt's status and possible ability to participate with PT better today. Pt appears less painful today but she is exhibiting s/s of anxiety and confusion. Cedric reported that pt's confusion has been an issue for some time and was one of the reasons the family had decided and proceeded to move her up from [place] to live with Mariella in [place].
[2020-12-13 13:28] LABS: Source, Urine Catheter
[2020-12-13 13:47] LABS: Appearance, Urine Turbid (Clear); Bilirubin, Urine Neg (Neg); Blood, Urine 4+ (Neg); Color, Urine Yellow (P-Yellow); Glucose Qualitative, Urine Neg (Neg); Ketones, Urine 1+ (Neg); Leukocyte Esterase, Urine 3+ (Neg); Nitrite, Urine Neg (Neg); Protein, Urine 3+ (Neg); Urobilinogen, Urine NORM (Normal)
[2020-12-13 14:26] LABS: Bacteria Many /hpf; Red Blood Cells, Urine TNTC /hpf (0-2); Squamous Epithelial Cells Rare /hpf (Few); Transitional Epithelial Cells Few /hpf (0-Rare); White Blood Cells, Urine TNTC /hpf (0-5)
--- NOTE | 2020-12-13 14:58 | NUR ---
IN ROOM WITH PT AND DAUGHTER AT BEDSIDE.
--- NOTE | 2020-12-13 18:12 | NUR ---
SHIFT SUMMARY PT ALERT BUT ORIENTED X1. CONFUSION R/T TO DEMENTIA AND PT WAS DIAGNOSED W/ UTI TODAY. A DOSE OF ABX WAS GIVEN. CLINIMIX AND LIPIDS STILL INFUSING ON CHENG (POWERGLIDE). IV PATENT AND INFUSING WELL. PT GOT UP IN CHAIR THIS MORNING. SHE ALSO WORKED WITH THERAPIST. PT USED BEDSIDE COMMODE, UA SAMPLE WAS OBTAINED. PT TOLERATED TRANSFER TO BED WELL WITH 2 PERSON ASSIST. DAUGHTER ALIX WAS INVOLVED WITH CARE AND ON BEDSIDE THROUGHOUT THE DAY. PT ABD IS MORE DISTENDED TODAY. DR. ESCOBAR ORDERED SUPPOSITORY. SUPPOSITORY ADMINISTERED, WAITING FOR BM. CALL LIGHT W/IN REACH.
--- NOTE | 2020-12-13 18:24 | NUR ---
Second [facility] visit for support to cedric. Pt appears much less anxious with cedric at bedside. She was resting quietly in bed. Cedric and I reviewed events of past 24 hours and pt's improvements. Family and staff happy with some gut movement and resolution of extreme abd discomfort/pain. Pt remains confused and with an extremely poor memory. She is emotionally labile at times. Cedric to continue coming in daily to support her mom's progress and healing. Will cont supportive visits.
[2020-12-14 04:35] LABS: BASOPHILS ABSOLUTE AUTO 0.04 K/mm3 (0.00-0.23); BASOPHILS PERCENT AUTO 0 % (0-2); EOSINOPHILS ABSOLUTE AUTO 0.18 K/mm3 (0.00-0.68); EOSINOPHILS PERCENT AUTO 2 % (0-6); Hematocrit 27.4 % (33.0-51.0); Hemoglobin 8.6 g/dL (11.5-16.0); IMMATURE GRAN ABSOLUTE AUTO 0.09 K/mm3 (0.00-0.10); IMMATURE GRAN PERCENT AUTO 1 % (0-1); LYMPHOCYTES PERCENT AUTO 13 % (21-46); MONOCYTES ABSOLUTE AUTO 1.03 K/mm3 (0.16-1.47); MONOCYTES PERCENT AUTO 9 % (4-13); Mean Corpuscular HGB 26.9 pg (26.0-34.0); Mean Corpuscular HGB Conc 31.4 g/dL (31.5-36.5); Mean Corpuscular Volume 86 fL (80-100); NEUTROPHILS ABSOLUTE AUTO 8.64 K/mm3 (1.96-9.15); NEUTROPHILS PERCENT AUTO 75 % (41-73); Platelet Count 560 K/mm3 (150-400); RDW Standard Deviation 40.7 fL (35.1-46.3); White Blood Cell Count 11.48 K/mm3 (4.00-11.30)
[2020-12-14 04:49] LABS: Anion Gap 6 mmol/L (6-16); Blood Urea Nitrogen 17 mg/dL (8-24); Bun/Creatinine Ratio 36.2 (12.0-20.0); CO2, Blood 26 mmol/L (21-32); Calcium, Blood 8.3 mg/dL (8.5-10.1); Chloride, Blood 102 mmol/L (98-108); Creatinine, Blood 0.47 mg/dL (0.40-1.00); Glomerular Filtration Rate >60 (60-); Glucose, Blood 103 mg/dL (70-99); Potassium, Blood 4.2 mmol/L (3.5-5.5); Sodium, Blood 134 mmol/L (136-145)
--- NOTE | 2020-12-14 05:27 | NUR ---
ASSUMED CARE OF PT. REPORT RECEIVED FROM YON PAUL. TRANSFERRED FROM SURGICAL INTO #353. A&O WITH SOME CONFUSION. PT. DENIES PAIN OR DISCOMFORT AT THIS TIME. MIDLINE ABD SURG INCISION C/D/I, TERESITA IN PLACE. CLINIMIX INFUSING, TOLERATING WELL. PT. INCONT, ATTENDS ON. DENIES NEEDS AT THIS TIME. CALL LIGHT WITHIN REACH, SIDE RAILS UPX2, AND BED ALARM ON FOR SAFETY. WILL CONT TO MONITOR.
--- NOTE | 2020-12-14 05:32 | NUR ---
SHIFT SUMMARY/TRANSFER NOTE PT HAS BEEN ALERT AND CONFUSED OVERNIGHT. VERY FORGETFUL. REORIENTED FREQUENTLY T/O THE SHIFT. PT HAS DIFFICULTY EXPRESSING NEEDS, STATING "I CAN'T MAKE DECISIONS" AND "I CAN'T ANSWER QUESTIONS" TO MOST INQUIRIES BY STAFF. SHE HAS EXPRESSED PAIN AND MED PER ORDERS PRN. PT IS INCONTINENT. ATTENS IN PLACE. HAD BM AND MULTIPLE VOIDS THIS SHIFT. TAKING PILLS WHOLE WITH APPLESAUCE. DRINKING WATER WITH ASSISTANCE. CLINIMIX INFUSING OVERNIGHT PER ORDERS. PT TRANSFERRED TO ROOM 353 FROM [facility] AT ABOUT 0515. REPORT GIVEN TO HUMBERTO ROBERT. PERSONAL BELONGINGS SENT WITH PT. ESCORTED BY THIS RN TO ROOM.
--- NOTE | 2020-12-14 17:14 | NUR ---
SUMMARY PT IS A/O X2-3, FORGETFUL w HX DEMENTIA. S/P ABD/PERF ULCER SURG w DR ESCOBAR, MIDLINE ABD INCISION SITE W/O S/S INFECTION, TERESITA INTACT, DR ESCOBAR ASSESS THIS AM, STATE SATISFACTION. DR ENCOURAGE HER TO GET OOB, ENCOURAGE HER TO RESUME ACTIVITY. SHE HAS PARTICIPATED w PT/OT, HAS BEEN UP IN CHAIR FOR PORTIONS OF DAY. HER DAUGHTER/CAREGIVER HAS BEEN W HER MOST OF DAY, ASSISTING w MEALS/FLUIDS. FL DIET CONTINUES PER PT/DAUGHTER REQUEST D/T RECENT DENTAL CARE, TEETH EXTRACTION, STATES NO TEETH, STATES PREFERS SOUPS @ THIS TIME. SHE STATE ABD TENDER/SORE HOWEVER HAS DECLINED PAIN MEDICATION X TYLENOL THIS AM. AFFECT IS SOMEWHAT ANXIOUS, EMOTIONAL, COOPERATIVE. CLINIMIX CONTINUES HOWEVER DR NAVARRETE DECREASE RATE TO 50 ML/HR TODAY. VSS/AFEBRILE.
--- NOTE | 2020-12-15 04:18 | NUR ---
SHIFT SUMMARY- PT. A&OX2 W/INTERMITTENT CONFUSION. APPEARED TO HAVE RESTED COMFORTABLY IN BED T/O THE NIGHT, NO APPARENT DISTRESS NOTED. PT. DENIED COMPLAINTS OF PAIN THIS SHIFT. MID ABD INCISION WITH TERESITA OPEN TO AIR, C/D/I. PT. 2 ASSIST, REPOSITIONED OFTEN FOR COMFORT AND PRN. VSS, CONTINUES ON CLINIMIX. CALL LIGHT WITHIN REACH AND SIDE RAILS UPX3. WILL CONT TO MONITOR.
[2020-12-15 04:57] LABS: BASOPHILS ABSOLUTE AUTO 0.05 K/mm3 (0.00-0.23); BASOPHILS PERCENT AUTO 1 % (0-2); EOSINOPHILS ABSOLUTE AUTO 0.22 K/mm3 (0.00-0.68); EOSINOPHILS PERCENT AUTO 3 % (0-6); Hematocrit 26.7 % (33.0-51.0); Hemoglobin 8.3 g/dL (11.5-16.0); IMMATURE GRAN ABSOLUTE AUTO 0.07 K/mm3 (0.00-0.10); IMMATURE GRAN PERCENT AUTO 1 % (0-1); LYMPHOCYTES ABSOLUTE AUTO 1.74 K/mm3 (0.84-5.20); LYMPHOCYTES PERCENT AUTO 21 % (21-46); MONOCYTES ABSOLUTE AUTO 0.82 K/mm3 (0.16-1.47); MONOCYTES PERCENT AUTO 10 % (4-13); Mean Corpuscular HGB 26.7 pg (26.0-34.0); Mean Corpuscular HGB Conc 31.1 g/dL (31.5-36.5); Mean Corpuscular Volume 86 fL (80-100); Mean Platelet Volume 7.9 fL (9.1-12.4); NEUTROPHILS ABSOLUTE AUTO 5.22 K/mm3 (1.96-9.15); NEUTROPHILS PERCENT AUTO 64 % (41-73); Platelet Count 584 K/mm3 (150-400); RDW Coefficient Variation 13.1 % (11.7-14.2); RDW Standard Deviation 41.1 fL (35.1-46.3); Red Blood Cell Count 3.11 M/mm3 (3.80-5.20); White Blood Cell Count 8.12 K/mm3 (4.00-11.30)
[2020-12-15 05:16] LABS: Anion Gap 7 mmol/L (6-16); Blood Urea Nitrogen 18 mg/dL (8-24); Bun/Creatinine Ratio 40.9 (12.0-20.0); CO2, Blood 25 mmol/L (21-32); Calcium, Blood 8.5 mg/dL (8.5-10.1); Chloride, Blood 105 mmol/L (98-108); Creatinine, Blood 0.44 mg/dL (0.40-1.00); Glomerular Filtration Rate >60 (60-); Glucose, Blood 101 mg/dL (70-99); Magnesium, Blood 1.7 mg/dL (1.6-2.4); Potassium, Blood 4.1 mmol/L (3.5-5.5); Sodium, Blood 137 mmol/L (136-145)
--- NOTE | 2020-12-15 18:30 | NUR ---
Called to meet with pt and her daughter. pt aggitated and having some spasmotic pain to abdomenand guarding. Advised nursing. pt able to answer questions but tracking and paticipatient in conversation difficlt. Need to have eval for stress and aggiation versus congnative impairment. Family feels best quality of life is to take pt jeremiah on comfort measures or hospice. pt has declined food for [place] and has been failing in her functional status. Will follow up with staff on getting her howm daughter feels that is best plan of action.
--- NOTE | 2020-12-15 18:38 | NUR ---
SHIFT SUMMARY PT IS AO TO SELF AND FAMILY, BUT FORGETFUL. PT MEDICATED FOR PAIN X1. PT DENIES N/V, SOB. PT WORKED WITH PT/OT WITH FAMILY PRESENT. PLAN IS FOR PT TO DC TO SON'S HOME. PT HAS A HOSPICE REFERRAL IN TODAY. PT CONTINUES TO HAVE POOR INTAKE. PT SEEN BY PALLIATIVE CARE TODAY. PT IS IN BED, CALL LIGHT IN REACH, BED IN LOW POSITION.
--- NOTE | 2020-12-16 03:59 | NUR ---
COMPUTER MECHANIC SUMMARY A/O TO SELF AND FAMILY ONLY. PT ANXIOUS AND CALLING OUT FOR DAUGHTER T/O NIGHT. COOPERATIVE WITH CARE AND EASILY REDIRECTABLE. CLINIMIX RUNNING AT 50ML/HR. DENIES PAIN OR SOB. BED IN LOWEST POSITION, ALARM ON, CALL LIGHT WITHIN REACH. WILL CONTINUE TO MONITOR AND REPORT TO ONCOMING RN.
[2020-12-16 05:50] LABS: BASOPHILS ABSOLUTE AUTO 0.08 K/mm3 (0.00-0.23); BASOPHILS PERCENT AUTO 1 % (0-2); EOSINOPHILS PERCENT AUTO 2 % (0-6); Hematocrit 19.9 % (33.0-51.0); Hemoglobin 6.3 g/dL (11.5-16.0); IMMATURE GRAN ABSOLUTE AUTO 0.08 K/mm3 (0.00-0.10); IMMATURE GRAN PERCENT AUTO 1 % (0-1); LYMPHOCYTES ABSOLUTE AUTO 1.94 K/mm3 (0.84-5.20); LYMPHOCYTES PERCENT AUTO 23 % (21-46); MONOCYTES ABSOLUTE AUTO 0.82 K/mm3 (0.16-1.47); MONOCYTES PERCENT AUTO 10 % (4-13); Mean Corpuscular HGB 27.4 pg (26.0-34.0); Mean Corpuscular HGB Conc 31.7 g/dL (31.5-36.5); Mean Corpuscular Volume 87 fL (80-100); NEUTROPHILS PERCENT AUTO 64 % (41-73); Platelet Count 692 K/mm3 (150-400); RDW Coefficient Variation 13.2 % (11.7-14.2); RDW Standard Deviation 42.1 fL (35.1-46.3); White Blood Cell Count 8.52 K/mm3 (4.00-11.30)
[2020-12-16 06:15] LABS: Anion Gap 7 mmol/L (6-16); Blood Urea Nitrogen 16 mg/dL (8-24); Bun/Creatinine Ratio 29.6 (12.0-20.0); CO2, Blood 25 mmol/L (21-32); Calcium, Blood 8.5 mg/dL (8.5-10.1); Chloride, Blood 106 mmol/L (98-108); Creatinine, Blood 0.54 mg/dL (0.40-1.00); Glomerular Filtration Rate >60 (60-); Glucose, Blood 100 mg/dL (70-99); Magnesium, Blood 1.8 mg/dL (1.6-2.4); Sodium, Blood 138 mmol/L (136-145)
--- NOTE | 2020-12-16 06:15 | NUR ---
PHYSICIAN COMMUNICATION CHIEF SECURITY AND SAFETY OFFICER PROVIDER NOTIFIED HGB OF 6.3. NEW ORDER PLACED TO TRANSFUSE 1 UNIT. VERIFIED SIGNED BLOOD CONSENT IN CHART. VERIFIED ORDER FOR TYPE & SCREEN WITH BBK.
[2020-12-16 08:12] LABS: Hematocrit 28.3 % (33.0-51.0); Mean Corpuscular HGB 27.4 pg (26.0-34.0); Mean Corpuscular HGB Conc 31.8 g/dL (31.5-36.5); Mean Corpuscular Volume 86 fL (80-100); Mean Platelet Volume 7.8 fL (9.1-12.4); Platelet Count 596 K/mm3 (150-400); RDW Coefficient Variation 13.2 % (11.7-14.2); RDW Standard Deviation 41.2 fL (35.1-46.3); Red Blood Cell Count 3.28 M/mm3 (3.80-5.20); White Blood Cell Count 7.64 K/mm3 (4.00-11.30)
--- NOTE | 2020-12-16 08:13 | NUR ---
SPOKE TO DR GOFF AROUND 0745 REGARDING HGB 6.3 TO SEE IF HE WANTED 1 UNIT PRBC HAD BEEN ORDERED BY NIGHT DOCTOR. HE WILL CALL DAUGHTER AND DETERMINE PLAN, AWAITING STAT CBC, WILL HOLD PRBC FOR NOW UNTIL I HEAR BACK
[2020-12-16] MEDS ORDERED: LEVO750 PO (14:20)
[2020-12-16] MEDS ORDERED: BISA10S PR (14:20)
[2020-12-16] MEDS ORDERED: Norco 10-325 T1 EACH PO (14:22)
[2020-12-16] MEDS ORDERED: ONDA4ODT MM (14:22)
[2020-12-16] MEDS ORDERED: PANT40 PO (14:22)
[2020-12-16] MEDS ORDERED: VISBIOME 112.51 EACH PO (14:23)
--- NOTE | 2020-12-16 15:24 | NUR ---
DISCHARGE SUMMARY DONNA WENT HOME WITH HER DAUGHTER ALIX. TWO PERSON ASSIST TO TRANSFER TO . PIV REMOVED, PAPERWORK GONE OVER WITH THEM, MEDS FAXED TO [facility]. PAPER SCRIPT OF SULY GIVEN TO PT AND PUT IN DISCHARGE FOLDER. BRIEF CHANGED OF INC URINE PRIOR TO LEAVING.
== END 2020-12-16 15:19 | disposition hospice, home (50) | DRG 326 ==
LOC: ER 20:20 → SURS 23:23 → ICUE 12-04 01:13 → SURS 12-04 02:00 → MEDS 12-14 05:17
PROVIDERS: Family Medicine; Internal Medicine; Physician Assistant; Surgery; ADMIT Hospitalist
PROC: 0DU607Z Supplement Stomach with Autologous Tissue Substitute, Open Approach (ICD-10-PCS; principal; 2020-12-04)
DX: K25.5 Chronic or unspecified gastric ulcer with perforation (principal); K65.0 Generalized (acute) peritonitis; E87.1 Hypo-osmolality and hyponatremia; K56.7 Ileus, unspecified; Z96.652 Presence of left artificial knee joint; Z96.642 Presence of left artificial hip joint; Z51.5 Encounter for palliative care; E11.9 Type 2 diabetes mellitus without complications; I48.0 Paroxysmal atrial fibrillation; E78.5 Hyperlipidemia, unspecified; I10 Essential (primary) hypertension; K66.8 Other specified disorders of peritoneum; F03.90 Unspecified dementia, unspecified severity, without behavioral disturbance, psychotic disturbance, mood disturbance, and anxiety; D69.6 Thrombocytopenia, unspecified; K21.9 Gastro-esophageal reflux disease without esophagitis; E87.6 Hypokalemia; E83.39 Other disorders of phosphorus metabolism; M17.11 Unilateral primary osteoarthritis, right knee; Z66 Do not resuscitate
CPT/HCPCS: 36415; 73560-RT; 74019; 74240; 80048; 80053; 80069; 81001; 83735; 84478; 85014; 85018; 85025; 85027; 86850; 86900; 86901; 86923; 87086; 87338; 96365; 97110; 97112; 97162; 97166; 97530; 99285-25; A9270; C1751; C9113; J0295; J1100; J1956; J2250; J2270; J2405; J2704; J2710; J3010; J7030; J7050; J7060; J7120